=== PATIENT | male | born 1960 | race Caucasian/White ===

== ENCOUNTER 2016-04-06 08:30 | Inpatient (IN) | payer OTHER ==
[~2016-04-06] VITALS: Ht 185.4 cm; Wt 108.6 kg
[~2016-04-06 08:30] MED LIST: ADVIL,NUPRIN,M200 MG PO; ASPIR-LOW81 MG PO; ATIVAN0.5 MG PO; Ceftin PO; DEPAKOTE ER500 MG PO; DEPAKOTE250 MG PO; DEPAKOTE500 MG PO; DIVALPROEX SOD500 M1 PO; DIVALPROEX SOD500 MG PO; DOXYCYCLINE HY100 M3 PO; DUONEB 2.5-0.5 M3 ML IH; DuoNeb IH; FLUOXETINE HCL10 MG PO; FLUOXETINE HCL40 MG PO; FLUPHENAZINE HCL5 MG PO; GABAPENTIN600 MG PO; GEODON20 MG PO; GEODON40 MG PO; Habitrol,Nicoderm CQ TD; KEPPRA500 MG PO; KEPPRA750 MG PO; LEVETIRACETAM500 MG PO; LEVETIRACETAM750 MG PO; Levaquin PO; NEURONTIN100 MG PO; NEURONTIN600 MG PO; NICOTINE PATCH1 EAC2 TD; OXCARBAZEPINE150 MG PO; PERCOCET 5/31 TABLET PO; PRAVASTATIN SOD40 MG PO; PROLIXIN10 MG PO; PROZAC40 MG PO; Pepcid PO; Proventil,Ventolin H IH; QUETIAPINE FUMA50 MG PO; ROWEEPRA500 MG PO; SEROQUEL100 MG PO; SEROQUEL400 MG PO; SEROQUEL50 MG PO; SIMVASTATIN40 MG PO; SPRITAM500 MG PO; SPRITAM750 MG PO; Theo-Dur,Theocron PO; VENTOLIN HFA18 GM IH; VIMPAT150 MG PO; VIMPAT200 MG PO; VIMPAT50 MG PO; Wellbutrin PO; Zocor PO; predniSONE PO
[2016-04-06 09:47] LABS: EOSINOPHIL (%) 3.5 % (0-5); EOSINOPHIL COUNT 0.1 K/uL (0-0.3); HEMATOCRIT 45.8 % (38.0-50.0); LYMPHOCYTE COUNT 0.9 K/uL (1.0-2.8); MCHC 32.8 G/DL (30.0-36.0); MCV 85.6 FL (86-99); MEAN PLAT.VOLUME 10.8 uM^3 (9.0-12.4); MONOCYTE (%) 12.6 % (3-12); MONOCYTE COUNT 0.5 K/uL (0-0.8); NEUTROPHIL (%) 60.8 % (45-76); NEUTROPHIL COUNT 2.4 K/uL (1.8-6.4); PLATELET COUNT 126 K/uL (156-360); RBC DIS.WIDTH-CV 14.4 % (11.8-14.6); RBC DIS.WIDTH-SD 44.5 % (39-53); RED BLOOD COUNT 5.35 M/uL (4.00-5.50)
[2016-04-06 09:58] LABS: CHLORIDE 105 mEq/L (99-109); POTASSIUM 3.8 mEq/L (3.7-5.4); SODIUM 142 mEq/L (136-147)
[2016-04-06 09:59] LABS: INTER. NORMALIZED RATIO 1.2; PTT 33.1 (25-32)
[2016-04-06 10:00] LABS: GLUCOSE 87 mg/dL (70-99)
[2016-04-06 10:01] LABS: ANION GAP 10 MEQ/L (2-14)
[2016-04-06 10:02] LABS: TOTAL BILIRUBIN 0.4 mg/dL (0.0-1.0)
[2016-04-06 10:03] LABS: ALKALINE PHOSPHATASE 89 IU/L (3-129)
[2016-04-06 10:04] LABS: GFR ESTIMATE (CALCULATED) > 59 mL/min/
[2016-04-06 10:05] LABS: UREA NITROGEN (BUN) 10 mg/dL (9-23)
[2016-04-06 10:08] LABS: TROP-I INTERPRETATION NEGATIVE; TROPONIN-I < 0.01 ng/mL (0.0-0.30)
[2016-04-06 10:40] LABS: LIPASE 13 U/L (1.0-51.0)
[2016-04-06 11:21] LABS: ADD MIUA? NO; BILIRUBIN NEGATIVE; BLOOD NEGATIVE; COLOR YELLOW ((YELLOW)); GLUCOSE (STRIP) NEGATIVE; KETONES TRACE; LEUKOCYTES NEGATIVE; NITRITE NEGATIVE; PROTEIN (STRIP) NEGATIVE; SPECIFIC GRAVITY 1.025 (1.000-1.030); UCUL ADDED? NO
[2016-04-06] MEDS ORDERED: PRAVACHOL40 MG PO (17:50)
[2016-04-06] MEDS ORDERED: NEURONTIN400 MG PO (17:51)
[2016-04-06] MEDS ORDERED: SEROQUEL300 MG PO (17:53)
[2016-04-06 20:31] VITALS: BP 148/81
[2016-04-06 20:38] LABS: SAMPLE HEMOLYSIS CHECK 0; SAMPLE ICTERIC CHECK 0; SAMPLE LIPEMIA CHECK 0
[2016-04-06 23:45] VITALS: BP 127/69
[2016-04-07 03:46] VITALS: BP 116/71
[2016-04-07 05:34] LABS: MCHC 30.9 G/DL (30.0-36.0); MCV 87.6 FL (86-99); MEAN PLAT.VOLUME 11.1 uM^3 (9.0-12.4); PLATELET COUNT 123 K/uL (156-360); RBC DIS.WIDTH-CV 14.5 % (11.8-14.6); RBC DIS.WIDTH-SD 46.3 % (39-53); RED BLOOD COUNT 5.25 M/uL (4.00-5.50); WHITE BLOOD COUNT 4.8 K/uL (4.1-10.2)
[2016-04-07 06:53] LABS: ALKALINE PHOSPHATASE 85 IU/L (3-129); ANION GAP 10 MEQ/L (2-14); CHLORIDE 104 MEQ/L (99-109); GFR ESTIMATE (CALCULATED) > 59 mL/min/; GLUCOSE 77 mg/dL (70-99); SAMPLE HEMOLYSIS CHECK 0; SAMPLE ICTERIC CHECK 0; SAMPLE LIPEMIA CHECK 0; SODIUM 141 MEQ/L (136-147); TOTAL BILIRUBIN 0.5 MG/DL (0.0-1.0); UREA NITROGEN (BUN) 10 mg/dL (9-23)
[2016-04-07 07:52] VITALS: BP 128/72
[2016-04-07 11:52] VITALS: BP 116/67
[2016-04-07 17:00] VITALS: BP 161/99
[2016-04-07 20:09] VITALS: BP 129/71
[2016-04-08 00:47] VITALS: BP 145/69
[2016-04-08 04:00] VITALS: BP 126/65
[2016-04-08 06:21] LABS: HEMATOCRIT 42.7 % (38.0-50.0); MCH 28.2 PG (29.0-34.0); MCHC 32.3 G/DL (30.0-36.0); MCV 87.3 FL (86-99); MEAN PLAT.VOLUME 11.8 uM^3 (9.0-12.4); PLATELET COUNT 119 K/uL (156-360); RBC DIS.WIDTH-CV 14.7 % (11.8-14.6); RBC DIS.WIDTH-SD 46.8 % (39-53); RED BLOOD COUNT 4.89 M/uL (4.00-5.50); WHITE BLOOD COUNT 5.9 K/uL (4.1-10.2)
[2016-04-08 06:47] LABS: ANION GAP 10 MEQ/L (2-14); CHLORIDE 103 MEQ/L (99-109); GFR ESTIMATE (CALCULATED) > 59 mL/min/; GLUCOSE 78 mg/dL (70-99); POTASSIUM 4.1 MEQ/L (3.7-5.4); SAMPLE HEMOLYSIS CHECK 0; SAMPLE ICTERIC CHECK 0; SAMPLE LIPEMIA CHECK 0; SODIUM 140 MEQ/L (136-147); UREA NITROGEN (BUN) 14 mg/dL (9-23)
[2016-04-08 08:15] VITALS: BP 125/69
[2016-04-08 16:18] VITALS: BP 136/73
[2016-04-08 21:00] VITALS: BP 125/78
[2016-04-08 23:20] VITALS: BP 125/68
[2016-04-09 08:02] VITALS: BP 157/70
[2016-04-09 17:04] VITALS: BP 122/76
[2016-04-09 23:11] VITALS: BP 138/72
[2016-04-10 05:32] LABS: ANION GAP 8 MEQ/L (2-14); CHLORIDE 104 MEQ/L (99-109); GFR ESTIMATE (CALCULATED) > 59 mL/min/; GLUCOSE 74 mg/dL (70-99); POTASSIUM 3.7 MEQ/L (3.7-5.4); SAMPLE HEMOLYSIS CHECK 0; SAMPLE ICTERIC CHECK 0; SAMPLE LIPEMIA CHECK 0; SODIUM 140 MEQ/L (136-147); UREA NITROGEN (BUN) 9 mg/dL (9-23)
[2016-04-10 06:17] LABS: MCH 26.8 PG (29.0-34.0); MCV 86.5 FL (86-99); MEAN PLAT.VOLUME 10.8 uM^3 (9.0-12.4); PLATELET COUNT 122 K/uL (156-360); RBC DIS.WIDTH-CV 14.1 % (11.8-14.6); RBC DIS.WIDTH-SD 44.7 % (39-53); RED BLOOD COUNT 4.51 M/uL (4.00-5.50)
[2016-04-10 06:21] LABS: WHITE BLOOD COUNT 3.5 K/uL (4.1-10.2)
[2016-04-10 08:24] VITALS: BP 111/62
[2016-04-10 16:30] VITALS: BP 115/67
[2016-04-10 23:48] VITALS: BP 130/76
[2016-04-11 05:49] LABS: NRBC (%) 0.7 /100 WBC (0-0)
[2016-04-11 05:50] LABS: ANION GAP 6 MEQ/L (2-14); CHLORIDE 106 MEQ/L (99-109); GFR ESTIMATE (CALCULATED) > 59 mL/min/; GLUCOSE 78 mg/dL (70-99); MAGNESIUM 1.7 mg/dl (1.3-2.7); POTASSIUM 3.6 MEQ/L (3.7-5.4); SAMPLE HEMOLYSIS CHECK 0; SAMPLE ICTERIC CHECK 0; SAMPLE LIPEMIA CHECK 0; SODIUM 142 MEQ/L (136-147); UREA NITROGEN (BUN) 7 mg/dL (9-23)
[2016-04-11 06:19] LABS: EOSINOPHIL (%) 1.3 % (0-5); HEMATOCRIT 39.1 % (38.0-50.0); IMMATURE GRANULOCYTE (%) 0.4 % (0.0-0.7); LYMPHOCYTE COUNT 0.9 K/uL (1.0-2.8); MCH 28.1 PG (29.0-34.0); MCHC 32.5 G/DL (30.0-36.0); MCV 86.5 FL (86-99); MEAN PLAT.VOLUME 10.6 uM^3 (9.0-12.4); MONOCYTE (%) 14.6 % (3-12); MONOCYTE COUNT 0.4 K/uL (0-0.8); NEUTROPHIL (%) 45.6 % (45-76); NEUTROPHIL COUNT 1.1 K/uL (1.8-6.4); PLATELET COUNT 146 K/uL (156-360); RBC DIS.WIDTH-CV 13.9 % (11.8-14.6); RBC DIS.WIDTH-SD 44.1 % (39-53); RED BLOOD COUNT 4.52 M/uL (4.00-5.50); WHITE BLOOD COUNT 2.4 K/uL (4.1-10.2)
[2016-04-11 07:34] VITALS: BP 131/79
[2016-04-11 16:18] VITALS: BP 138/65
[2016-04-12 00:14] VITALS: BP 118/68
[2016-04-12 05:34] LABS: EOSINOPHIL (%) 2.5 % (0-5); EOSINOPHIL COUNT 0.1 K/uL (0-0.3); HEMATOCRIT 40.2 % (38.0-50.0); IMMATURE GRANULOCYTE (%) 0.4 % (0.0-0.7); LYMPHOCYTE COUNT 1.3 K/uL (1.0-2.8); MCHC 31.3 G/DL (30.0-36.0); MCV 86.1 FL (86-99); MEAN PLAT.VOLUME 10.5 uM^3 (9.0-12.4); MONOCYTE COUNT 0.4 K/uL (0-0.8); NEUTROPHIL (%) 39.5 % (45-76); NEUTROPHIL COUNT 1.1 K/uL (1.8-6.4); PLATELET COUNT 162 K/uL (156-360); RBC DIS.WIDTH-CV 13.7 % (11.8-14.6); RBC DIS.WIDTH-SD 43.1 % (39-53); RED BLOOD COUNT 4.67 M/uL (4.00-5.50); WHITE BLOOD COUNT 2.9 K/uL (4.1-10.2)
[2016-04-12 06:21] LABS: ANION GAP 8 MEQ/L (2-14); CHLORIDE 105 MEQ/L (99-109); GFR ESTIMATE (CALCULATED) > 59 mL/min/; GLUCOSE 82 mg/dL (70-99); POTASSIUM 3.4 MEQ/L (3.7-5.4); SAMPLE HEMOLYSIS CHECK 0; SAMPLE ICTERIC CHECK 0; SAMPLE LIPEMIA CHECK 0; SODIUM 143 MEQ/L (136-147); UREA NITROGEN (BUN) 9 mg/dL (9-23)
[2016-04-12 07:35] VITALS: BP 143/89
[2016-04-12 15:36] VITALS: BP 128/91
[2016-04-12 23:54] VITALS: BP 138/84
[2016-04-13 06:13] LABS: ANION GAP 6 MEQ/L (2-14); CHLORIDE 107 MEQ/L (99-109); GFR ESTIMATE (CALCULATED) > 59 mL/min/; GLUCOSE 84 mg/dL (70-99); POTASSIUM 3.8 MEQ/L (3.7-5.4); SAMPLE HEMOLYSIS CHECK 0; SAMPLE ICTERIC CHECK 0; SAMPLE LIPEMIA CHECK 0; SODIUM 142 MEQ/L (136-147); UREA NITROGEN (BUN) 7 mg/dL (9-23)
[2016-04-13 08:30] VITALS: BP 140/80
[2016-04-13] MEDS ORDERED: AMOX TR-K CLV1 EAC4 PO (13:48)
[2016-04-13] MEDS ORDERED: ASPIR-LOW81 MG PO (13:48)
[2016-04-13] MEDS ORDERED: NICOTINE PATCH1 EAC2 TD (13:48)
[2016-04-13 16:14] VITALS: BP 128/69
[2016-04-14 00:19] VITALS: BP 151/69
[2016-04-14 08:22] VITALS: BP 143/85
== END 2016-04-14 16:13 | DRG 177 ==
LOC: EME 08:30 → EDOF 18:58 → 5WEST 18:58 → EDOF 18:58 → 5WEST 20:23 → 3EAST 04-07 12:19 → 5WEST 04-07 12:19 → 3EAST 04-07 19:54
PROVIDERS: Emergency Medicine; Internal Medicine; Physician Assistant; Physician Assistant Medical; Student in an Organized Health Care Education/Training Program
DX: J69.0 Pneumonitis due to inhalation of food and vomit (principal); G93.40 Encephalopathy, unspecified; L02.31 Cutaneous abscess of buttock; J43.1 Panlobular emphysema; R29.6 Repeated falls; G40.909 Epilepsy, unspecified, not intractable, without status epilepticus; G89.29 Other chronic pain; S06.9X9S Unspecified intracranial injury with loss of consciousness of unspecified duration, sequela; V99.XXXS Unspecified transport accident, sequela; I10 Essential (primary) hypertension; E78.2 Mixed hyperlipidemia; E78.00 Pure hypercholesterolemia, unspecified; F32.9 Major depressive disorder, single episode, unspecified; E66.9 Obesity, unspecified; Z68.30 Body mass index [BMI] 30.0-30.9, adult
CPT/HCPCS: 70450; 70551; 71010; 71250; 80048; 80053; 80164; 81003; 83605; 83690; 83735; 84484; 85025; 85027; 85610; 85730; 87040; 87801; 92610 GN; 93005; 94640; 94640 76; 94799; 97530 GO; 97530 GP; 99202; 99281; 99285; G0378; G8978 GP CJ; G8979 GP CH; G8987 GO CJ; G8988 CI; J0696; J1644; J1953; J7030; J7050

== ENCOUNTER 2016-10-31 08:08 | Inpatient (IN) | payer OTHER ==
[~2016-10-31] VITALS: Ht 185.4 cm; Wt 98.3 kg
[~2016-10-31 08:08] MED LIST changes: +AMOX TR-K CLV1 EAC4 PO; -KEPPRA750 MG PO; +NEURONTIN400 MG PO; +PRAVACHOL40 MG PO; +SEROQUEL300 MG PO
[2016-10-31] MEDS ORDERED: FLUPHENAZINE H2.5 MG PO (08:27)
[2016-10-31] MEDS ORDERED: LO-DOSE ASPIRIN81 M2 PO (08:27)
[2016-10-31] MEDS ORDERED: COGENTIN0.5 MG PO (08:27)
[2016-10-31] MEDS ORDERED: VIMPAT200 MG PO (08:28)
[2016-10-31] MEDS ORDERED: GABAPENTIN400 MG PO (08:28)
[2016-10-31] MEDS ORDERED: TYLENOL REGULA325 MG PO (08:29)
[2016-10-31] MEDS ORDERED: DEPAKOTE500 MG PO (08:29)
[2016-10-31] MEDS ORDERED: MYCOSTATIN15 GM PO (08:30)
[2016-10-31 09:09] LABS: HEMATOCRIT 44.8 % (38.0-50.0); MCHC 31.9 G/DL (30.0-36.0); MCV 84.5 FL (86-99); MEAN PLAT.VOLUME 11.2 uM^3 (9.0-12.4); PLATELET COUNT 125 K/uL (156-360); RBC DIS.WIDTH-CV 14.9 % (11.8-14.6); RBC DIS.WIDTH-SD 46.2 % (39-53); WHITE BLOOD COUNT 6.9 K/uL (4.1-10.2)
[2016-10-31 09:20] LABS: CHLORIDE 103 mEq/L (99-109); POTASSIUM 3.9 mEq/L (3.7-5.4); SODIUM 138 mEq/L (136-147)
[2016-10-31 09:22] LABS: GLUCOSE 95 mg/dL (70-99)
[2016-10-31 09:23] LABS: ANION GAP 8 MEQ/L (2-14)
[2016-10-31 09:25] LABS: SERUM ETHYL ALCOHOL < 10 mg/dL
[2016-10-31 09:26] LABS: GFR ESTIMATE (CALCULATED) > 59 mL/min/
[2016-10-31 09:27] LABS: UREA NITROGEN (BUN) 10 mg/dL (9-23)
[2016-10-31 11:56] LABS: ADD MIUA? YES; BILIRUBIN NEGATIVE; BLOOD NEGATIVE; COLOR AMBER ((YELLOW)); GLUCOSE (STRIP) NEGATIVE; KETONES 5; LEUKOCYTES NEGATIVE; NITRITE NEGATIVE; PROTEIN (STRIP) 100; SPECIFIC GRAVITY 1.021 (1.000-1.030); UROBILINOGEN 0.2 MG/DL (0.2-1.0)
[2016-10-31 12:05] LABS: BACTERIA NONE SEEN /HPF; EPITHELIAL CELLS RARE /HPF; HYALINE CASTS 0-5 /LPF; MUCUS 1+ /LPF; UCUL ADDED? YES
[2016-10-31 12:10] LABS: AMPHETAMINE NEGATIVE (500 ng/mL); BARBITURATES NEGATIVE (200 ng/mL); BENZODIAZEPINES NEGATIVE (150 ng/mL); COCAINE NEGATIVE (150 ng/mL); INTERNAL CONTROLS VALID? YES; METHADONE NEGATIVE (200 ng/mL); METHAMPHETAMINE NEGATIVE (500 ng/mL); OPIATES (MORPHINE) NEGATIVE (100 ng/mL); OXYCODONE NEGATIVE (100 ng/mL); PHENCYCLIDINE NEGATIVE (25 ng/mL); PROPOXYPHENE NEGATIVE (300 ng/mL); THC CANNABINOIDS NEGATIVE (50 ng/mL); TRICYCLIC ANTIDEPRESSANTS PRESUMPTIVE POSITIVE (300 ng/mL)
[2016-10-31 16:11] VITALS: BP 130/87
[2016-10-31 19:33] VITALS: BP 131/78
[2016-10-31 23:44] VITALS: BP 133/77
[2016-10-31 23:46] VITALS: BP 133/77
[2016-11-01 04:10] VITALS: BP 119/70
[2016-11-01 05:55] LABS: HEMATOCRIT 43.5 % (38.0-50.0); MCH 26.8 PG (29.0-34.0); MCHC 32.2 G/DL (30.0-36.0); MCV 83.2 FL (86-99); MEAN PLAT.VOLUME 10.5 uM^3 (9.0-12.4); PLATELET COUNT 132 K/uL (156-360); RBC DIS.WIDTH-CV 14.3 % (11.8-14.6); RED BLOOD COUNT 5.23 M/uL (4.00-5.50); WHITE BLOOD COUNT 5.7 K/uL (4.1-10.2)
[2016-11-01 06:39] LABS: ANION GAP 10 MEQ/L (2-14); CHLORIDE 104 MEQ/L (99-109); GFR ESTIMATE (CALCULATED) > 59 mL/min/; GLUCOSE 115 mg/dL (70-99); POTASSIUM 4.6 MEQ/L (3.7-5.4); SAMPLE HEMOLYSIS CHECK 0; SAMPLE ICTERIC CHECK 0; SAMPLE LIPEMIA CHECK 0; SODIUM 140 MEQ/L (136-147); UREA NITROGEN (BUN) 13 mg/dL (9-23)
[2016-11-01 07:39] VITALS: BP 123/77
[2016-11-01 08:00] LABS: INTERNAL CONTROL VALID? YES
[2016-11-01 11:23] VITALS: BP 122/73
[2016-11-01 15:55] VITALS: BP 145/81
[2016-11-01 20:00] VITALS: BP 135/81
[2016-11-01 23:59] VITALS: BP 123/78
[2016-11-02 03:33] VITALS: BP 102/57
[2016-11-02 07:09] LABS: EOSINOPHIL (%) 0.4 % (0-5); HEMATOCRIT 43.8 % (38.0-50.0); IMMATURE GRANULOCYTE (%) 0.4 % (0.0-0.7); INSTRUMENT ABS NEUTROPHIL CT 4.6 K/uL; LYMPHOCYTE COUNT 0.8 K/uL (1.0-2.8); MCHC 32.4 G/DL (30.0-36.0); MCV 83.4 FL (86-99); MEAN PLAT.VOLUME 10.5 uM^3 (9.0-12.4); MONOCYTE (%) 4.4 % (3-12); MONOCYTE COUNT 0.3 K/uL (0-0.8); NEUTROPHIL (%) 81.1 % (45-76); NEUTROPHIL COUNT 4.6 K/uL (1.8-6.4); PLATELET COUNT 148 K/uL (156-360); RBC DIS.WIDTH-CV 14.6 % (11.8-14.6); RBC DIS.WIDTH-SD 44.1 % (39-53); RED BLOOD COUNT 5.25 M/uL (4.00-5.50); WHITE BLOOD COUNT 5.7 K/uL (4.1-10.2)
[2016-11-02 07:22] LABS: ANION GAP 7 MEQ/L (2-14); CHLORIDE 106 MEQ/L (99-109); GFR ESTIMATE (CALCULATED) > 59 mL/min/; GLUCOSE 113 mg/dL (70-99); POTASSIUM 4.6 MEQ/L (3.7-5.4); SAMPLE HEMOLYSIS CHECK 0; SAMPLE ICTERIC CHECK 0; SAMPLE LIPEMIA CHECK 0; SODIUM 142 MEQ/L (136-147); UREA NITROGEN (BUN) 16 mg/dL (9-23)
[2016-11-02 07:43] VITALS: BP 121/75
[2016-11-02 11:20] VITALS: BP 126/79
[2016-11-02 16:12] VITALS: BP 121/85
[2016-11-02 20:06] VITALS: BP 129/74
[2016-11-02 23:22] VITALS: BP 100/61
[2016-11-03 03:38] VITALS: BP 102/62
[2016-11-03 07:05] LABS: EOSINOPHIL (%) 0 % (0-5); HEMATOCRIT 42.5 % (38.0-50.0); IMMATURE GRANULOCYTE (%) 0.4 % (0.0-0.7); INSTRUMENT ABS NEUTROPHIL CT 3.9 K/uL; LYMPHOCYTE COUNT 1.3 K/uL (1.0-2.8); MCH 27.8 PG (29.0-34.0); MCHC 32.5 G/DL (30.0-36.0); MCV 85.5 FL (86-99); MEAN PLAT.VOLUME 11.4 uM^3 (9.0-12.4); MONOCYTE (%) 8.8 % (3-12); MONOCYTE COUNT 0.5 K/uL (0-0.8); NEUTROPHIL (%) 68.7 % (45-76); NEUTROPHIL COUNT 3.9 K/uL (1.8-6.4); PLATELET COUNT 176 K/uL (156-360); RBC DIS.WIDTH-CV 14.7 % (11.8-14.6); RED BLOOD COUNT 4.97 M/uL (4.00-5.50); WHITE BLOOD COUNT 5.7 K/uL (4.1-10.2)
[2016-11-03 07:28] LABS: ANION GAP 7 MEQ/L (2-14); CHLORIDE 106 MEQ/L (99-109); GFR ESTIMATE (CALCULATED) > 59 mL/min/; POTASSIUM 4.5 MEQ/L (3.7-5.4); SAMPLE HEMOLYSIS CHECK 0; SAMPLE ICTERIC CHECK 0; SAMPLE LIPEMIA CHECK 0; SODIUM 144 MEQ/L (136-147); UREA NITROGEN (BUN) 17 mg/dL (9-23)
[2016-11-03 07:29] LABS: GLUCOSE 82 mg/dL (70-99)
[2016-11-03 07:53] VITALS: BP 130/76
[2016-11-03 10:47] VITALS: BP 116/75
[2016-11-03 16:07] VITALS: BP 115/69
[2016-11-03 19:57] VITALS: BP 103/62
[2016-11-03 23:50] VITALS: BP 115/68
[2016-11-04 03:46] VITALS: BP 111/68
[2016-11-04 06:31] LABS: EOSINOPHIL (%) 0.2 % (0-5); HEMATOCRIT 43.1 % (38.0-50.0); IMMATURE GRANULOCYTE (%) 0.6 % (0.0-0.7); INSTRUMENT ABS NEUTROPHIL CT 4.2 K/uL; LYMPHOCYTE COUNT 1.4 K/uL (1.0-2.8); MCH 26.6 PG (29.0-34.0); MCHC 31.6 G/DL (30.0-36.0); MCV 84.2 FL (86-99); MEAN PLAT.VOLUME 10.8 uM^3 (9.0-12.4); MONOCYTE (%) 10.3 % (3-12); MONOCYTE COUNT 0.7 K/uL (0-0.8); NEUTROPHIL (%) 65.9 % (45-76); NEUTROPHIL COUNT 4.2 K/uL (1.8-6.4); PLATELET COUNT 186 K/uL (156-360); RBC DIS.WIDTH-CV 14.6 % (11.8-14.6); RED BLOOD COUNT 5.12 M/uL (4.00-5.50); WHITE BLOOD COUNT 6.3 K/uL (4.1-10.2)
[2016-11-04 06:52] LABS: ANION GAP 8 MEQ/L (2-14); CHLORIDE 105 MEQ/L (99-109); GFR ESTIMATE (CALCULATED) > 59 mL/min/; GLUCOSE 85 mg/dL (70-99); POTASSIUM 4.2 MEQ/L (3.7-5.4); SAMPLE HEMOLYSIS CHECK 0; SAMPLE ICTERIC CHECK 0; SAMPLE LIPEMIA CHECK 0; SODIUM 143 MEQ/L (136-147); UREA NITROGEN (BUN) 17 mg/dL (9-23)
[2016-11-04 08:38] VITALS: BP 120/78
[2016-11-04] MEDS ORDERED: LEVOFLOXACIN750 MG PO (13:43)
[2016-11-04] MEDS ORDERED: PROAIR RESPICL90 MCG IH (13:44)
[2016-11-04] MEDS ORDERED: NICOTINE PATCH1 EAC2 TD (13:44)
[2016-11-04] MEDS ORDERED: SPIRIVA RESPIMAT4 GM IH (13:44)
[2016-11-04] MEDS ORDERED: PREDNISONE20 MG PO (13:46)
[2016-11-04 15:58] VITALS: BP 133/74
== END 2016-11-04 16:11 | disposition home or self-care (01) | DRG 190 ==
LOC: EME → EDBD 08:08 → 5SOUTH 13:57 → EDOF 13:57 → ENRESERV 14:06 → 5SOUTH 16:05
PROVIDERS: Emergency Medicine; Internal Medicine; Nurse Practitioner Adult Health
DX: J44.0 Chronic obstructive pulmonary disease with (acute) lower respiratory infection (principal); J96.21 Acute and chronic respiratory failure with hypoxia; J18.9 Pneumonia, unspecified organism; F33.3 Major depressive disorder, recurrent, severe with psychotic symptoms; Z99.81 Dependence on supplemental oxygen; B36.9 Superficial mycosis, unspecified; I10 Essential (primary) hypertension; F17.200 Nicotine dependence, unspecified, uncomplicated; J44.1 Chronic obstructive pulmonary disease with (acute) exacerbation; G40.909 Epilepsy, unspecified, not intractable, without status epilepticus; E78.5 Hyperlipidemia, unspecified; F41.9 Anxiety disorder, unspecified; F19.10 Other psychoactive substance abuse, uncomplicated; G25.3 Myoclonus; R25.1 Tremor, unspecified; Z87.820 Personal history of traumatic brain injury; Z79.82 Long term (current) use of aspirin; Z79.899 Other long term (current) drug therapy; G89.29 Other chronic pain; R29.6 Repeated falls
CPT/HCPCS: 71010; 71020; 80048; 80164; 81003; 83605; 85025; 85027; 87040; 87070; 87086; 87205; 87449; 94640; 94640 76; 94799; 99202; 99281; 99285; G0480; J0456; J0696; J1644; J1956; J2920; J7050; J7512; S0028

== ENCOUNTER 2017-05-22 07:37 | Emergency (ER) | payer OTHER ==
[~2017-05-22] VITALS: Ht 185.4 cm; Wt 94.6 kg
[~2017-05-22 07:37] MED LIST changes: +COGENTIN0.5 MG PO; +FLUPHENAZINE H2.5 MG PO; +GABAPENTIN400 MG PO; +LEVOFLOXACIN750 MG PO; +LO-DOSE ASPIRIN81 M2 PO; +MYCOSTATIN15 GM PO; +PREDNISONE20 MG PO; +PROAIR RESPICL90 MCG IH; +SPIRIVA RESPIMAT4 GM IH; +TYLENOL REGULA325 MG PO
[2017-05-22 09:01] LABS: HEMATOCRIT 47.6 % (38.0-50.0); HEMOGLOBIN 15.9 G/DL (12.5-16.6); MCH 27.5 PG (29.0-34.0); MCHC 33.4 G/DL (30.0-36.0); MCV 82.2 FL (86-99); PLATELET COUNT 157 K/uL (156-360); RBC DIS.WIDTH-CV 14.1 % (11.8-14.6); RBC DIS.WIDTH-SD 42.5 % (39-53); RED BLOOD COUNT 5.79 M/uL (4.00-5.50); WHITE BLOOD COUNT 4.2 K/uL (4.1-10.2)
[2017-05-22 09:13] LABS: CHLORIDE 102 mEq/L (99-109); POTASSIUM 4.2 mEq/L (3.7-5.4); SODIUM 137 mEq/L (136-147)
[2017-05-22 09:15] LABS: GLUCOSE 89 mg/dL (70-99)
[2017-05-22 09:18] LABS: CREATININE 0.8 mg/dL (0.6-1.3); GFR ESTIMATE (CALCULATED) > 59 mL/min/ (58.99-99999)
[2017-05-22 09:19] LABS: UREA NITROGEN (BUN) 5 mg/dL (9-23)
[2017-05-22 09:23] LABS: TROP-I INTERPRETATION NEGATIVE; TROPONIN-I < 0.01 ng/mL (0.0-0.30)
[2017-05-22 11:47] VITALS: BP 135/72
== END 2017-05-22 12:00 | disposition home or self-care (01) ==
LOC: EME 07:37
PROVIDERS: Emergency Medicine Emergency Medical Services
DX: R41.82 Altered mental status, unspecified (principal); R56.9 Unspecified convulsions; E86.0 Dehydration; Z91.81 History of falling; J44.9 Chronic obstructive pulmonary disease, unspecified; I10 Essential (primary) hypertension; E78.5 Hyperlipidemia, unspecified; F41.9 Anxiety disorder, unspecified; F17.200 Nicotine dependence, unspecified, uncomplicated; Z87.820 Personal history of traumatic brain injury; Z86.73 Personal history of transient ischemic attack (TIA), and cerebral infarction without residual deficits; Z79.82 Long term (current) use of aspirin
CPT/HCPCS: 70450; 71045; 80048; 84484; 85027; 93005; 99281; 99285; J7040

== ENCOUNTER 2017-07-06 14:40 | Observation (INO) | payer OTHER ==
[~2017-07-06] VITALS: Ht 185.4 cm; Wt 98.2 kg
[~2017-07-06 14:40] MED LIST changes: -MYCOSTATIN15 GM PO; +NYSTATIN15 GM TP
[2017-07-06 15:52] LABS: HEMATOCRIT 44.8 % (38.0-50.0); HEMOGLOBIN 15.2 G/DL (12.5-16.6); MCH 27.6 PG (29.0-34.0); MCHC 33.9 G/DL (30.0-36.0); MCV 81.3 FL (86-99); PLATELET COUNT 196 K/uL (156-360); RBC DIS.WIDTH-CV 14.1 % (11.8-14.6); RBC DIS.WIDTH-SD 41.5 % (39-53); RED BLOOD COUNT 5.51 M/uL (4.00-5.50); WHITE BLOOD COUNT 5.8 K/uL (4.1-10.2)
[2017-07-06 16:03] LABS: CHLORIDE 96 mEq/L (99-109); POTASSIUM 4.3 mEq/L (3.7-5.4); SODIUM 134 mEq/L (136-147)
[2017-07-06 16:05] LABS: GLUCOSE 132 mg/dL (70-99)
[2017-07-06 16:09] LABS: CREATININE 0.8 mg/dL (0.6-1.3); GFR ESTIMATE (CALCULATED) > 59 mL/min/ (58.99-99999)
[2017-07-06 16:10] LABS: UREA NITROGEN (BUN) 5 mg/dL (9-23)
[2017-07-06 16:53] LABS: VALPROIC ACID (DEPAKOTE) 57.3 MCG/ML (50-100)
[2017-07-06 17:04] LABS: APPEARANCE CLEAR ((CLEAR)); BILIRUBIN NEGATIVE; BLOOD NEGATIVE; COLOR YELLOW ((YELLOW)); GLUCOSE (STRIP) NEGATIVE; KETONES NEGATIVE; LEUKOCYTES NEGATIVE; NITRITE NEGATIVE; PROTEIN (STRIP) NEGATIVE; SPECIFIC GRAVITY 1.005 (1.000-1.030); UCUL ADDED? NO
[2017-07-06] MEDS ORDERED: DEPAKOTE250 MG PO (19:47)
[2017-07-06] MEDS ORDERED: PROAIR HFA8.5 GM IH (19:51)
[2017-07-06 19:58] VITALS: BP 145/80
[2017-07-06 23:41] VITALS: BP 126/77
[2017-07-07 03:34] VITALS: BP 107/64
[2017-07-07 06:12] LABS: ALBUMIN 3.6 G/DL (3.2-4.8); ALKALINE PHOSPHATASE 70 IU/L (3-129); ALT (GPT) 11 IU/L (3-49); AST (GOT) 14 IU/L (2-34); CHLORIDE 103 MEQ/L (99-109); CREATININE 0.7 MG/DL (0.6-1.3); GFR ESTIMATE (CALCULATED) > 59 mL/min/ (58.99-99999); GLUCOSE 100 mg/dL (70-99); POTASSIUM 3.7 MEQ/L (3.7-5.4); SODIUM 137 MEQ/L (136-147); UREA NITROGEN (BUN) 4 mg/dL (9-23)
[2017-07-07 06:18] LABS: TOTAL BILIRUBIN 0.4 MG/DL (0.0-1.0); TOTAL PROTEIN 5.7 G/DL (6.4-8.3)
[2017-07-07 08:00] VITALS: BP 116/66
[2017-07-07 11:44] VITALS: BP 119/74
[2017-07-07] MEDS ORDERED: DIVALPROEX SOD500 MG PO (15:01)
[2017-07-07 15:30] VITALS: BP 131/74
== END 2017-07-07 16:53 | disposition home or self-care (01) ==
LOC: EME 14:40 → 4SOUTH 18:47 → EDOF 18:47 → ENRESERV 18:49 → 4SOUTH 19:51
PROVIDERS: Emergency Medicine; Family Medicine
DX: G40.909 Epilepsy, unspecified, not intractable, without status epilepticus (principal); Z87.820 Personal history of traumatic brain injury; I10 Essential (primary) hypertension; J44.9 Chronic obstructive pulmonary disease, unspecified; F29 Unspecified psychosis not due to a substance or known physiological condition; Z79.82 Long term (current) use of aspirin; F41.9 Anxiety disorder, unspecified; F32.9 Major depressive disorder, single episode, unspecified; F19.10 Other psychoactive substance abuse, uncomplicated; R26.89 Other abnormalities of gait and mobility; G89.29 Other chronic pain; F17.200 Nicotine dependence, unspecified, uncomplicated; Z83.3 Family history of diabetes mellitus
CPT/HCPCS: 80048; 80053; 80164; 81003; 85027; 93005; 94640; 99202; 99281; 99285; G0378; J1650; J1953; J7030; J7050

== ENCOUNTER 2017-08-02 20:19 | Emergency (ER) | payer OTHER ==
[~2017-08-02] VITALS: Ht 185.4 cm; Wt 1072.0 kg
[~2017-08-02 20:19] MED LIST changes: +PROAIR HFA8.5 GM IH
[2017-08-02 22:52] VITALS: BP 144/80
== END 2017-08-02 22:57 | disposition home or self-care (01) ==
LOC: EME 20:19
DX: S09.90XA Unspecified injury of head, initial encounter (principal); S00.211A Abrasion of right eyelid and periocular area, initial encounter; S00.11XA Contusion of right eyelid and periocular area, initial encounter; W01.0XXA Fall on same level from slipping, tripping and stumbling without subsequent striking against object, initial encounter; Y92.099 Unspecified place in other non-institutional residence as the place of occurrence of the external cause; I10 Essential (primary) hypertension; E78.5 Hyperlipidemia, unspecified; J44.9 Chronic obstructive pulmonary disease, unspecified; Z79.82 Long term (current) use of aspirin; F17.200 Nicotine dependence, unspecified, uncomplicated
CPT/HCPCS: 70450; 99281; 99283